=== PATIENT | male | born 1955 | race Caucasian/White ===

== ENCOUNTER 2020-09-12 22:43 | Inpatient (IN) | payer MEDICAID, SELFPAY ==
--- NOTE | 2020-09-12 22:30 | RT.EKG_ITS ---
APPROVED REPORT Exam: Resting ECG Reason for Exam: [facility] Patient Location: E HR:137 bpm ECG Measurements Heart Rate 137 AXIS MA 161 P 80 QRSd 91 QRS 44 QT 298 T 54 QTc 423 Conclusion Sinus tachycardia. Atrial premature complexes.
[2020-09-12 22:46] VITALS: BP 178/106; PULSE 131; RESP 20; TEMP 36.5; O2SAT 97
[2020-09-12 22:47] VITALS: BP 178/106; PULSE 129; O2SAT 97
[2020-09-12 22:49] VITALS: RESP 20
--- NOTE | 2020-09-12 23:00 | DI.CT_ITS ---
Exam(s) CT HEAD WO EXAM: CT HEAD WO CLINICAL HISTORY: AMS. TECHNIQUE: Imaging Protocol: Axial computed tomography images with coronal and sagittal reformatted images were created and reviewed COMPARISON: No exams were available for comparison FINDINGS: Ventricles and Extra axial spaces: Normal in size and morphology for the patient's age. Hemorrhage: None. Cerebral parenchyma: There are areas of decreased attenuation in the white matter consistent with sma ll vessel ischemic disease. No acute territorial infarct is present. There are bilateral basal gang liar lacunar infarcts present. Midline shift: None. Brainstem/Cerebellum: Normal. Calvarium: Normal. Visualized Paranasal sinuses/Mastoids: There is mucosal thickening in the paranasal sinuses with no a ir-fluid levels. Small mucous retention cyst or polyp is seen in the right sphenoid sinus. Soft Tissues: Unremarkable. IMPRESSION: No acute intracranial process. RADIATION DOSE DELIVERED: 866.98mGy.cm Total DLP DATA REPOSITORY: All CT scans at this facility are submitted to the National Radiology Data Registry (NRDR) Dose Index Registry (DIR) with the [employer] (ACR). RADIATION OPTIMIZATION: All CT scans at this facility use at least one of these dose optimization te chniques: automated exposure control; mA and/or kV adjustment per patient size (includes targeted exa ms where dose is matched to clinical indication); or iterative reconstruction.
[2020-09-12 23:06] LABS: Abs Immature Grans 0.01 10^3/uL (0.0-0.06); Absolute Basophil Count 0.03 10^3/uL (0.0-0.2); Absolute Eosinophil Count 0.12 10^3/uL (0.0-0.7); Absolute Lymphocyte Count 1.15 10^3/uL (1.2-3.4); Absolute Monocyte Count 0.49 10^3/uL (0.1-0.8); Absolute Neutrophil Count 2.46 10^3/uL (1.2-6.7); Basophils % 0.7; Eosinophils % 2.8; HCT 41.3 % (40.0-50.0); HGB 13.7 g/dL (13.5-17.5); Immature Grans % 0.2; MCH 28.6 pg (27.0-33.0); MCHC 33.2 % (32.0-36.0); MCV 86.2 fL (80-95); MPV 11.2 fL (8.0-11.0); Monocytes % 11.5; Neutrophils % 57.8; Nucleated RBC 0 %; Platelet Count 121 10^3/uL (130-400); RBC 4.79 10^6/uL (4.36-5.78); RDW 14.3 % (11.8-14.1); RDW-SD 45.8 fL; WBC 4.26 10^3/uL (4.4-10.8)
[2020-09-12 23:12] VITALS: PULSE 133; TEMP 37.9; O2SAT 96
--- NOTE | 2020-09-12 23:13 | W.ED.GENAD ---
Discharge Plan Disposition Patient Disposition: [facility] INPATIENT Condition: Poor Discharge Details Clinical Impression: Altered mental status, Benzodiazepine dependence, Alcohol dependence Primary Care Provider: Hammad Victoria ED Provider: Hammad Bobby [place] Meds and New Rx's Prescriptions: No Action Eliquis 5 mg Tablet 5 mg PO BID RF: 0 clonazepam 0.5 mg Tablet 0.5 mg PO PRN PRNRF: 0 clonazepam 1 mg Tablet 1 mg PO BID RF: 0 mirtazapine 30 mg Tablet 30 mg PO DAILY RF: 0 lisinopril 5 mg Tablet 5 mg PO DAILY RF: 0 quetiapine [Seroquel] 300 mg Tablet 150 mg PO QHS RF: 0 zolpidem 10 mg Tablet 10 mg PO QHS PRNRF: 0 duloxetine 60 mg Capsule,Delayed Release(Dr/Ec) 60 mg PO DAILY RF: 0 Medical Decision Making Patient presenting with altered mental status. He is tachycardic and febrile to 100.3. No specific complaint other than back pain which is unclear whether this is old or new. Records were obtained from [facility] and from the [place]. Patient has history of opiate abuse, benzodiazepine dependence, alcohol use. He also had submassive PE with thrombectomy at [facility] in May. At this time he is awake and alert but confused. He is nonfocal neurologically. IV is in place. Laboratory studies sent. Fluids and Ativan ordered in case this is benzo withdrawal. CT head as well as CT chest abdomen pelvis ordered given history of submassive PE and complaint of back pain. He is supposed to be on Eliquis now. Patient's work-up here has been unremarkable. His laboratory studies without any clinically significant abnormalities. Potassium and magnesium are a little low. His alcohol, Tylenol, aspirin are all negative. Urine drug screen is positive for marijuana and opiates. There is no benzodiazepines present. His head CT is without acute change. CT of the chest abdomen pelvis also nothing acute. He has responded to fluids and IV Ativan. My suspicion is this is related to benzodiazepine and alcohol withdrawal. I have ordered thiamine and folate acid. Case discussed with hospitalist. Patient will be admitted for further management of presumed withdrawal with altered mental status. Medical Records Medical records reviewed: Yes I reviewed the patient's medical records. Medical records narrative: Obtained from [facility] and [place] Lab Data Lab results reviewed: Yes I reviewed the patient's lab results. ECG Data Attestation: I personally reviewed and interpreted this ECG (s) as follows: Prior ECG tracings: not available for review Interpretation: Sinus tachycardia with PACs and rate related ST changes. No acute ST or T elevation. HPI General Mode of arrival: EMS. Date/Time Provider Initiated Documentation: 09/12/20 23:13. Limitations to Documentation: altered mental status. Information obtained by: patient, EMS and RN notes reviewed. HPI Narrative: Patient brought in by EMS with altered mental status. Patient was in the right apartment building but tried to gain access to the wrong apartment through a window. [facility] was called by the occupants of that apartment. [facility] subsequently called EMS when they realized patient was altered but not intoxicated. They did speak to the patient's who was not able to offer up much history. Patient here is awake and alert but obviously confused. He does know he is in a hospital but does not know the date, the holiday that was yesterday, any medical or medication history. Patient denies headache, chest pain, shortness of breath, abdominal pain. Patient complains of low back pain but is unclear whether this is new or old. He has never been to our hospital before. Apparently moved to the [facility] recently with his . Related Data Home Medications Medication Instructions Recorded Confirmed apixaban [Eliquis] 5 mg PO BID 09/13/20 09/13/20 clonazepam 0.5 mg PO PRN PRN 09/13/20 09/13/20 clonazepam 1 mg PO BID 09/13/20 09/13/20 duloxetine 60 mg PO DAILY 09/13/20 09/13/20 lisinopril 5 mg PO DAILY 09/13/20 09/13/20 mirtazapine 30 mg PO DAILY 09/13/20 09/13/20 quetiapine [Seroquel] 150 mg PO QHS 09/13/20 09/13/20 zolpidem 10 mg PO QHS PRN 09/13/20 09/13/20 Allergies Allergy/AdvReac Type Severity Reaction Status Date / Time acetaminophen [From Percocet] Allergy Intermediate Verified 09/13/20 00:01 oxycodone [From Percocet] Allergy Intermediate Verified 09/13/20 00:01 bupropion AdvReac Intermediate Verified 09/13/20 00:01 hydrochlorothiazide AdvReac Intermediate Verified 09/13/20 00:01 General Stated Complaint: AMS/LOC KARISSA: 2 Review of Systems Unobtainable due to mental status [facility] Medical History (Updated 09/13/20 @ 01:50 by Hammad Bobby MD) Alcohol dependence Anxiety Benzodiazepine dependence Bipolar disorder BPH (benign prostatic hyperplasia) Hepatitis B Hepatitis C virus HTN (hypertension) Hypercholesterolemia Opioid abuse Pulmonary embolism Surgical History (Updated 09/12/20 @ 23:33 by Hammad Bobby MD) History of surgical procedure s/p thrombectomy for PE Social History Smoking/Tobacco Use Status: Never Smoking risk assessment performed?: Yes Substance use type: does not use Exam Narrative Exam Narrative: Const: Obese, confused, elderly male in NAD. HEENT: NC/AT. Normal facial exam. Eyes: Pupils are small and minimally reactive. Neck: Supple. Trachea midline. Lungs: Normal respiratory effort. Lungs are clear. Cor: RRR without murmur/gallop. Tachycardic. Good radial pulses. GI: Soft. NT/ND. No guarding or rebound. Neuro: A+O x 2. Normal speech. Confused. Cranial nerves II - XII grossly intact. No gross motor or sensory deficit. Ext: No C/C/E. Skin: Warm and dry without rash. Course Vital Signs Vital signs: Vital Signs Temperature 97.7 F 09/12/20 22:46 Pulse 131 H 09/12/20 22:46 Respiratory Rate 20 09/12/20 22:46 Blood Pressure 178/106 H 09/12/20 22:46 Pulse Oximetry 97 09/12/20 22:46 Temperature 100.3 F H 09/12/20 23:12 Temperature Source Core 09/12/20 23:12 Pulse 133 H 09/12/20 23:12 Respiratory Rate 20 09/12/20 22:49 Respiratory Effort Non-Labored 09/12/20 22:49 Respiratory Depth Normal 09/12/20 22:49 Respiratory Pattern Normal 09/12/20 22:49 Blood Pressure 178/106 H 09/12/20 22:46 Blood Pressure Position Sitting 09/12/20 22:46 Pulse Oximetry 96 09/12/20 23:12 Oxygen Delivery Method Room Air 09/12/20 23:12 Oxygen Flow Rate 0 09/12/20 23:12 Lab/Test Results Lab/Test Results: Laboratory Tests Range/Units 09/12/20 22:55 WBC (4.4-10.8) 10^3/uL 4.26 L RBC (4.36-5.78) 10^6/uL 4.79 Hgb (13.5-17.5) g/dL 13.7 Hct (40.0-50.0) % 41.3 MCV (80-95) fL 86.2 MCH (27.0-33.0) pg 28.6 MCHC (32.0-36.0) % 33.2 RDW (11.8-14.1) % 14.3 H Plt Count (130-400) 10^3/uL 121 L MPV (8.0-11.0) fL 11.2 H Immature Gran % 0.2 Neutrophils % 57.8 Lymphocytes % 27.0 Monocytes % 11.5 Eosinophils % 2.8 Basophils % 0.7 Nucleated RBC % % 0 Absolute Neutrophils (1.2-6.7) 10^3/uL 2.46 Absolute Lymphocytes (1.2-3.4) 10^3/uL 1.15 L Absolute Monocytes (0.1-0.8) 10^3/uL 0.49 Absolute Eosinophils (0.0-0.7) 10^3/uL 0.12 Absolute Basophils (0.0-0.2) 10^3/uL 0.03
--- NOTE | 2020-09-12 23:15 | DI.CT_ITS ---
Exam(s) CT CHEST PE ABD PELVIS W EXAM: CT CHEST PE ABD PELVIS W CLINICAL HISTORY: AMS, tachycardia, back pain. TECHNIQUE: Imaging Protocol: Axial CT angiography was performed with multi-slice acquisition and mu lti-planar and/or 3D reconstructions. CONTRAST MATERIAL: Intravenous: Omnipaque 350 Contrast volume:100 mL COMPARISON: No exams were available for comparison FINDINGS: CHEST: Pulmonary Arteries: No evidence of filling defect to suggest pulmonary emboli. Tracheobronchial tree: Patent where visualized. Mediastinum and Reyna: No dominant adenopathy or fluid collection. Pulmonary parenchyma: Pleural based small opacities are noted in the left upper lobe and superior seg ment of the right lower lobe. No architectural distortion. Pleura: No effusion or pneumothorax. Heart: The heart is not dilated. Mild coronary artery calcification. No significant pericardial effu matthew. Aorta: Thoracic aorta non-dilated. Mild atherosclerosis. No dissection. Bones: No acute fracture. Thyroid: Visualized portions are unremarkable. ABDOMEN: Liver: There is diffuse decreased attenuation liver consistent with fatty infiltration. No measurabl e mass. Portal, Superior Mesenteric, and Splenic Veins: Unremarkable. Gallbladder and Biliary Tract: No radiodense calculus or dilation. Pancreas: Normal density, no abnormal calcifications or inflammatory process. Spleen: Normal. Adrenals: No masses seen. Kidneys: Normal size, contour and axis. No radiodense stones or obstructive uropathy. No masses seen. Abdominal Aorta: Abdominal portion non-dilated. Atherosclerosis. Bowel: No obstruction or bowel wall thickening. Appendix is unremarkable. Sigmoid colon diverticulosi s, but no evidence of acute diverticulitis. Peritoneal Cavity: No ascites, collection or mesenteric inflammatory response. Lymph Nodes: Within normal limits. Bones: No acute fracture. Soft Tissues: Unremarkable. PELVIS: Bladder: Symmetric distention, no gross wall thickening. Reproductive Organs: Unremarkable as visualized. Lymph Nodes: Within normal limits. Bones: No acute fracture. IMPRESSION: 1. No evidence of pulmonary embolism, thoracic aortic dissection or aneurysm. 2. Pleural based small opacities in the right lower lobe and left upper lobe. These may represent ar eas of atelectasis or pneumonia. Mass cannot be entirely excluded. Follow-up CT scan of the chest t o document resolution is recommended. 3. No acute abdominal or pelvic process. Incidental Findings RADIATION DOSE DELIVERED: 1,975.62mGy.cm Total DLP 1,975.62mGy.cm Total DLP DATA REPOSITORY: All CT scans at this facility are submitted to the National Radiology Data Registry (NRDR) Dose Index Registry (DIR) with the [employer] (ACR). RADIATION OPTIMIZATION: All CT scans at this facility use at least one of these dose optimization te chniques: automated exposure control; mA and/or kV adjustment per patient size (includes targeted exa ms where dose is matched to clinical indication); or iterative reconstruction.
[2020-09-12 23:19] LABS: Ammonia 15 umol/L (11-32)
[2020-09-12 23:24] LABS: Bilirubin Negative (Negative); Blood Small (Negative); Clarity Clear (Clear); Glucose Negative (Negative); Ketones Negative (Negative); Leukocyte Esterase Negative (Negative); Nitrite Negative (Negative); Specific Gravity >= 1.030 (1.005-1.025); Urobilinogen 0.2 EU/dL (Up TO 0.2)
[2020-09-12 23:28] LABS: ALT 24 U/L (16-63); AST 25 U/L (15-37); Albumin 3.7 g/dL (3.4-5.0); Alkaline Phosphatase 57 U/L (46-116); Anion Gap 9.4 mmol/L (3-11); BUN 20 mg/dL (7-18); Bilirubin, Total 0.6 mg/dL (0.2-1.0); CO2 29.6 mmol/L (21.0-32.0); CREATININE 1.3 mg/dL (0.70-1.30); Calcium 9.1 mg/dL (8.5-10.1); Chloride 101 mmol/L (98-107); Estimated GFR 55.58 (mL/min/1.73m2); Glucose 177 mg/dL (74-106); Magnesium 1.7 mg/dL (1.8-2.4); Potassium 3.4 mmol/L (3.5-5.1); Sodium 140 mmol/L (136-145); TSH (W/Ref FT4) 1.92 uIU/mL (0.36-3.74); Total Protein 7.9 g/dL (6.4-8.2); Troponin I < 0.05 ng/mL (<0.06)
[2020-09-12 23:29] LABS: Bacteria Rare HPF (Negative); C & S Indicated? No; Casts Negative LPF (Negative); Crystals Negative HPF (Negative); Epithelial Cells Rare HPF (Negative); Mucus Trace (Negative); WBC Negative HPF (0-5)
[2020-09-12 23:31] VITALS: BP 166/70; PULSE 128; PULSE 97; RESP 18; O2SAT 96
[2020-09-12 23:31] LABS: Salicylate < 2.8 mg/dL (<2.8)
[2020-09-12] MEDS: LORazepam 2 MG/ML VIAL 1 MG IVP (23:32)
[2020-09-12] MEDS: Lactated Ringers 1,000 ML 200 ML IV (23:33)
[2020-09-12 23:34] LABS: ETHANOL BLOOD < 3.0 mg/dL (<3)
[2020-09-12 23:34] LABS: *AMPHETAMINES SCREEN URINE Negative (Negative); *BARBITURATES SCREEN URINE Negative (Negative); *BENZODIAZEPINES SCREEN URINE Negative (Negative); Cannabinoids THC Positive (Negative); Cocaine Screen,Urine Negative (Negative); METHADONE URINE SCREEN Negative (Negative); OPIATES URINE SCREEN Positive (Negative)
[2020-09-12 23:35] LABS: Tricyclic Antidepressants Negative (Negative)
[2020-09-12 23:35] LABS: Acetaminophen < 2 ug/mL (10-30)
[2020-09-12 23:36] LABS: Lactate 2.3 mmol/L (0.6-1.4)
[2020-09-12] MEDS: Omnipaque 350 MG/ML 100 ML BTL IV (23:51)
[2020-09-12] MEDS: Normal Saline - Diluent 50 ML VIAL IV (23:54)
[2020-09-12] MEDS: Normal Saline Flush 10 ML SYR IVP (23:55)
[2020-09-13] VITALS (11 sets, daily range): BP systolic 127–173; BP diastolic 72–112; PULSE 80–122; RESP 12–19; TEMP 36.8–37.2; O2SAT 94–99
[2020-09-13] MEDS: LORazepam 2 MG/ML VIAL IVP (00:09)
--- NOTE | 2020-09-13 00:10 | DI.VRAD_ITS ---
PROCEDURE INFORMATION: Exam: CT Head Without Contrast Exam date and time: 09/12/2020 11:15 PM Age: 64 years old Clinical indication: Altered mental status/memory loss; Confusion or disorientation; Patient HX: AMS TECHNIQUE: Imaging protocol: Computed tomography of the head without contrast. Radiation optimization: All CT scans at this facility use at least one of these dose optimization techniques: automated exposure control; mA and/or kV adjustment per patient size (includes targeted exams where dose is matched to clinical indication); or iterative reconstruction. COMPARISON: No relevant prior studies available. FINDINGS: Brain: No acute intracranial hemorrhage, mass-effect, midline shift, or extra-axial collection is seen. There is patchy white matter hypoattenuation, nonspecific but commonly seen as a chronic sequela of small vessel ischemic disease. There is patchy hypoattenuation in the region of the basal ganglia and deep white matter tracts with an appearance suggesting lacunar infarcts, uncertain chronicity. The matamoros white matter differentiation appears preserved. Cerebral ventricles: The ventricular system and basilar cisterns appear appropriate in size and configuration. Paranasal sinuses: There is patchy mucoperiosteal thickening in the paranasal sinuses but no air-fluid levels. Focal soft tissue density material in the right sphenoid sinus has the appearance of retained mucus, a mucous retention cyst, or an inflammatory polyp. Mastoid air cells: The mastoid air cells appear well-aerated. Auditory system: The middle ear cavities appear clear. Orbital cavity: The globes and intraorbital structures appear grossly intact. Vasculature: There is atherosclerotic calcification within the intracranial portion of the internal carotid arteries bilaterally. Bones/joints: The bony calvarium appears intact. No depressed skull fracture is seen. Soft tissues: No significant scalp lesion is seen. IMPRESSION: No acute intracranial abnormality seen. Dictated and Authenticated by: Delgado Hooks MD. Ordering:CAROL Cueva MD
[2020-09-13] MEDS: THIAMINE 100 MG in Normal Saline 100 ML 200 MG IVPB (01:09)
--- NOTE | 2020-09-13 01:21 | DI.VRAD_ITS ---
PROCEDURE INFORMATION: Exam: CTA Chest With Contrast Exam date and time: 09/12/2020 11:21 PM Age: 64 years old Clinical indication: Other: Tachycardia; Patient HX: Ams< back pain, tacycardia; Additional info: Submassive pe in feb with thrombectomy TECHNIQUE: Imaging protocol: Computed tomographic angiography of the chest with contrast. 3D rendering (Not supervised by radiologist): MIP and/or 3D reconstructed images were created by the technologist. Radiation optimization: All CT scans at this facility use at least one of these dose optimization techniques: automated exposure control; mA and/or kV adjustment per patient size (includes targeted exams where dose is matched to clinical indication); or iterative reconstruction. Contrast material: OMNIPAQUE 350; Contrast volume: 100 ml; Contrast route: INTRAVENOUS (IV); COMPARISON: No relevant prior studies available. FINDINGS: Pulmonary arteries: No pulmonary emboli. Aorta: No aortic aneurysm. No aortic dissection. Lungs: Pleural based opacity in the left upper lobe. Minimal subsegmental atelectasis versus scarring Pleural spaces: No pneumothorax. No pleural effusion. Heart: No cardiomegaly. No pericardial effusion. Lymph nodes: Unremarkable. No enlarged lymph nodes. Bones/joints: Unremarkable. No acute fracture. Soft tissues: Unremarkable. IMPRESSION: No pulmonary emboli observed Nonspecific pleural based opacity in the left upper lobe PROCEDURE INFORMATION: Exam: CT Abdomen And Pelvis With Contrast Exam date and time: 09/12/2020 11:21 PM Age: 64 years old Clinical indication: Other: Tachycardia; Patient HX: Ams< back pain, tacycardia; Additional info: Submassive pe in feb with thrombectomy TECHNIQUE: Imaging protocol: Computed tomography of the abdomen and pelvis with contrast. Radiation optimization: All CT scans at this facility use at least one of these dose optimization techniques: automated exposure control; mA and/or kV adjustment per patient size (includes targeted exams where dose is matched to clinical indication); or iterative reconstruction. Contrast material: OMNIPAQUE 350; Contrast volume: 100 ml; Contrast route: INTRAVENOUS (IV); COMPARISON: No relevant prior studies available. FINDINGS: Liver: Normal. No mass. Gallbladder and bile ducts: Normal. No calcified stones. No ductal dilation. Pancreas: Normal. No ductal dilation. Spleen: Normal. No splenomegaly. Adrenal glands: Normal. No mass. Kidneys and ureters: Normal. No hydronephrosis. Stomach and bowel: Unremarkable. No obstruction. No mucosal thickening. Appendix: No evidence of appendicitis. Intraperitoneal space: Unremarkable. No free air. No significant fluid collection. Vasculature: Atherosclerosis. No abdominal aortic aneurysm. Lymph nodes: Unremarkable. No enlarged lymph nodes. Urinary bladder: Unremarkable as visualized. Reproductive: Unremarkable as visualized. Bones/joints: Degenerative changes in the spine most pronounced at L4-L5. No acute fracture. No dislocation. Soft tissues: Unremarkable. IMPRESSION: No acute findings Dictated and Authenticated by: Manohar Reilly MD. Ordering:CAROL Cueva MD
[2020-09-13 02:08] LABS: Source Nasal/Nares
[2020-09-13] MEDS: Folic Acid 1 MG TAB PO ×2 (02:16→08:05)
[2020-09-13] MEDS: Lactated Ringers 1,000 ML 200 ML IV (03:22)
[2020-09-13] MEDS: POTASSIUM CHLORIDE/0.9% NACL 1,000 ML 80 MEQ IV (04:42)
--- NOTE | 2020-09-13 05:45 | W.PM.HP.N ---
Date of service: 09/13/20 Time of Service: 05:46 Assessment and Plan Assessment and plan (1) Altered mental status: Status: Acute Assessment and plan: Has h/o Etoh and benzo dependence; neither noted in his system. Likely withdrawal from benzodiazapines and possibly Etoh. His last known alcohol intake is not known. CIWA monitoring; no score overnight. Will schedule lorazepam 1 mg TID with plan to restart Clonazepam when it is more clear that he is not withdrawing from alcohol. (2) Alcohol dependence: Status: Chronic Assessment and plan: Unknown last intake. MVI, folate and thiamine daily. Ordered po but if remains lethargic can give via banana bag. (3) Benzodiazepine dependence: Status: Chronic Assessment and plan: [facility] It is unclear if there has been a disruption in his prescription availability or if he is taking it more frequently than prescribed. His was admitted to [facility] recently for benzodiazepine withdrawal so the possiblitiy of some diversion of his Clonazepam to her is possible. Now on scheduled lorazepam with prn for CIWA scoring. (4) HTN (hypertension): Status: Chronic Assessment and plan: He is on a low dose of lisinopril 5mg daily. BP elevated Monitor. (5) Opioid abuse: Status: Chronic Assessment and plan: He is not prescribed [facility]iods [facility] the [facility] but his UDS was positive for opiods. (6) Pulmonary embolism: Status: Chronic Assessment and plan: History of a P.E. Cont Eliquis. History of Present Illness History of Present Illness Chief Complaint: Confusional state Narrative: This is a 64 yo male with a PMH of alcohol dependence, benzodiazepine dependence, Bipolar disorder, opiod abuse, submassive pulmonary embolism on Eliquis, HTN, Hepatitis B, C, BPH. He presented to the ED d/t a change/alteration in his mental status. He had attempted to gain entrance into an apartment via a window that was not his apartment. He was in his apartment complex. The residence of the apt called [facility] who then notified EMS once they noted his confusion. In the ED he knew he was in a hospital but did not know the date or his medical history. His WBC and Hgb were normal. Platelets low at 121. Mildly low K+ of 3.4 and a Mg+ of 1.7. His UDS was positive for opiods (he is not prescribed any), positive for THC, and negative for benzodiazepines (he is prescribed Clonazepam). He was noted to be alert but confused. To the ED physician denied fever/chills, cough/sputum/SOA, abd pain/N/V. He did described back pain and there was uncertainty as to whether this was chronic or acute. CT head, chest/abd/pelvis were all unremarkable. When I evaluated him he was very lethargic and only remained awake for very brief periods and did not answer questions. His [facility] and [facility] records were reviewed by the ED physician. Given his history of alcohol abuse syndrome he was started on CIWA monitoring but did not score overnight. He was given a total of 3mg of lorazepam in the ED. The working diagnoses of benzodiazepine withdrawal and alcohol withdrawal were acted upon. Review of Systems All systems reviewed & are unremarkable except as noted in HPI and below (As per ED physicians findings.) [facility] Medical History Alcohol dependence Anxiety Benzodiazepine dependence Bipolar disorder BPH (benign prostatic hyperplasia) Hepatitis B Hepatitis C virus HTN (hypertension) Hypercholesterolemia Opioid abuse Pulmonary embolism Surgical History History of surgical procedure s/p thrombectomy for PE Social History Smoking/Tobacco Use Status: Never Smoking risk assessment performed?: Yes Substance use type: does not use Meds Allergies and Home Medications Allergies Allergy/AdvReac Type Severity Reaction Status Date / Time acetaminophen [From Percocet] Allergy Intermediate Verified 09/13/20 00:01 oxycodone [From Percocet] Allergy Intermediate Verified 09/13/20 00:01 bupropion AdvReac Intermediate Verified 09/13/20 00:01 hydrochlorothiazide AdvReac Intermediate Verified 09/13/20 00:01 Home Medications Medication Instructions Recorded Confirmed Type apixaban [Eliquis] 5 mg PO BID 09/13/20 09/13/20 History clonazepam 0.5 mg PO PRN PRN 09/13/20 09/13/20 History clonazepam 1 mg PO BID 09/13/20 09/13/20 History duloxetine 60 mg PO DAILY 09/13/20 09/13/20 History lisinopril 5 mg PO DAILY 09/13/20 09/13/20 History mirtazapine 30 mg PO DAILY 09/13/20 09/13/20 History quetiapine [Seroquel] 150 mg PO QHS 09/13/20 09/13/20 History zolpidem 10 mg PO QHS PRN 09/13/20 09/13/20 History Exam Const General: no acute distress Nutritional Appearance: obese Orientation: not awake (asleep. Arouses briefly to tactile stimulation.) [facility] Head: normocephalic and atraumatic Eyes Sclera: sclerae normal Pupils: PERRL Resp Effort & Inspection: normal respiratory effort Auscultation: clear to auscultation bilaterally Cardio Rate: tachycardic (HR in the 90's.) Rhythm: regular rhythm Heart Sounds: S1 normal and S2 normal GI Inspection: obesity Palpation: soft and nontender Skin General skin exam: no rashes or lesions noted Extrem General: no pedal edema and no calf tenderness Results Labs Result diagrams: 09/12/20 22:55 09/12/20 22:55 Labs: Laboratory Results - last 24 hr 09/12/20 09/12/20 09/12/20 22:55 22:55 22:55 WBC 4.26 L RBC 4.79 Hgb 13.7 Hct 41.3 MCV 86.2 MCH 28.6 MCHC 33.2 RDW 14.3 H Plt Count 121 L MPV 11.2 H Immature Gran % 0.2 Neutrophils % 57.8 Lymphocytes % 27.0 Monocytes % 11.5 Eosinophils % 2.8 Basophils % 0.7 Nucleated RBC % 0 Absolute Neutrophils 2.46 Absolute Lymphocytes 1.15 L Absolute Monocytes 0.49 Absolute Eosinophils 0.12 Absolute Basophils 0.03 VBG Lactate Sodium 140 Potassium 3.4 L Chloride 101 Carbon Dioxide 29.6 Anion Gap 9.4 BUN 20 H Creatinine 1.3 Estimated GFR/1.73 m2 55.58 Glucose 177 H Calcium 9.1 Magnesium 1.7 L Total Bilirubin 0.6 AST 25 ALT 24 Alkaline Phosphatase 57 Ammonia 15 Troponin I < 0.05 Total Protein 7.9 Albumin 3.7 TSH 1.92 Urine Color Urine Clarity Urine pH Ur Specific [place] Urine Protein Urine Ketones Urine Blood Urine Nitrite Urine Bilirubin Urine Urobilinogen Ur Leukocyte Esterase Urine RBC Urine WBC Ur Epithelial Cells Urine Crystals Urine Bacteria Urine Casts Urine Mucus Ur Culture Indicated? Urine Glucose Salicylates Urine Opiates Screen Urine Methadone Screen Acetaminophen Ur Barbiturates Screen Ur Tricyclics Screen Ur Amphetamines Screen U Benzodiazepines Scrn Urine Cocaine Screen Ur THC Screen Ethyl Alcohol < 3.0 COVID-19 Source 09/12/20 09/12/20 09/12/20 22:55 23:15 23:15 WBC RBC Hgb Hct MCV MCH MCHC RDW Plt Count MPV Immature Gran % Neutrophils % Lymphocytes % Monocytes % Eosinophils % Basophils % Nucleated RBC % Absolute Neutrophils Absolute Lymphocytes Absolute Monocytes Absolute Eosinophils Absolute Basophils VBG Lactate Sodium Potassium Chloride Carbon Dioxide Anion Gap BUN Creatinine Estimated GFR/1.73 m2 Glucose Calcium Magnesium Total Bilirubin AST ALT Alkaline Phosphatase Ammonia Troponin I Total Protein Albumin TSH Urine Color Yellow Urine Clarity Clear Urine pH 6.0 Ur Specific [place] >= 1.030 H Urine Protein Trace H Urine Ketones Negative Urine Blood Small H Urine Nitrite Negative Urine Bilirubin Negative Urine Urobilinogen 0.2 Ur Leukocyte Esterase Negative Urine RBC 3-5 H Urine WBC Negative Ur Epithelial Cells Rare Urine Crystals Negative Urine Bacteria Rare Urine Casts Negative Urine Mucus Trace Ur Culture Indicated? No Urine Glucose Negative Salicylates < 2.8 Urine Opiates Screen Positive A Urine Methadone Screen Negative Acetaminophen < 2 Ur Barbiturates Screen Negative Ur Tricyclics Screen Negative Ur Amphetamines Screen Negative U Benzodiazepines Scrn Negative Urine Cocaine Screen Negative Ur THC Screen Positive A Ethyl Alcohol COVID-19 Source 09/12/20 09/13/20 23:24 02:04 WBC RBC Hgb Hct MCV MCH MCHC RDW Plt Count MPV Immature Gran % Neutrophils % Lymphocytes % Monocytes % Eosinophils % Basophils % Nucleated RBC % Absolute Neutrophils Absolute Lymphocytes Absolute Monocytes Absolute Eosinophils Absolute Basophils VBG Lactate 2.3 H* Sodium Potassium Chloride Carbon Dioxide Anion Gap BUN Creatinine Estimated GFR/1.73 m2 Glucose Calcium Magnesium Total Bilirubin AST ALT Alkaline Phosphatase Ammonia Troponin I Total Protein Albumin TSH Urine Color Urine Clarity Urine pH Ur Specific [place] Urine Protein Urine Ketones Urine Blood Urine Nitrite Urine Bilirubin Urine Urobilinogen Ur Leukocyte Esterase Urine RBC Urine WBC Ur Epithelial Cells Urine Crystals Urine Bacteria Urine Casts Urine Mucus Ur Culture Indicated? Urine Glucose Salicylates Urine Opiates Screen Urine Methadone Screen Acetaminophen Ur Barbiturates Screen Ur Tricyclics Screen Ur Amphetamines Screen U Benzodiazepines Scrn Urine Cocaine Screen Ur THC Screen Ethyl Alcohol COVID-19 Source Nasal/nares Last Vital Signs Temp 37 C 09/13/20 03:22 Pulse 90 09/13/20 03:22 Resp 19 09/13/20 03:22 BP 173/95 H 09/13/20 03:22 Pulse Ox 99 09/13/20 03:22 COVID-19 Screening Have you, or household traveled for leisure in last 14 days?: No Had IN PERSON contact w/suspected or confirmed C-19 person: No
[2020-09-13] MEDS: Lisinopril 5 MG TAB PO (07:53)
[2020-09-13] MEDS: LORazepam 1 MG TAB PO ×2 (07:53→13:51)
[2020-09-13] MEDS: DULoxetine 30 MG CAP 60 MG PO (07:53)
[2020-09-13] MEDS: Magnesium Oxide 400 MG TAB PO (07:53)
[2020-09-13] MEDS: Apixaban 5 MG TAB PO (07:53)
[2020-09-13] MEDS: Multivitamin TAB 1 TAB PO (08:05)
[2020-09-13] MEDS: Thiamine 100 MG TAB PO (08:05)
[2020-09-13 10:21] LABS: COVID-19 PCR Negative (Negative)
--- NOTE | 2020-09-13 10:33 | INITIAL_ITS ---
- If Service Date Differs Date of service: 09/13/20 Time of Service: 10:33 Care Management Initial Assess REASON FOR HOSPITALIZATION:: Alcohol withdrawal PAST MEDICAL HISTORY/PAST SURGICAL HISTORY:: Alcohol dependence. Anxiety. Benzodiazepine dependence. Bipolar disorder. BPH (benign prostatic hyperplasia). Hepatitis B. Hepatitis C virus. HTN (hypertension). Hypercholesterolemia. Opioid abuse. Pulmonary embolism. History of surgical procedure. s/p thrombectomy for PE PREVIOUS FUNCTIONAL STATUS/SOCIAL/FAMILY SUPPORTS:: Trey resides in a new apartment in [place] with his , Sharon. He is independent at baseline in the community. [facility] RN CM Mendy Lilly reports that Trey had a large PE in May and was admitted to [facility]. She reports that his [facility] is Dr. Keegan Rosen, his mental health provider is Dr. Victor M Cortez. His dx include bipolar disorder, bpad, panic dx with agoraphobia, and alcoholism in remission. Mendy reports there is much documentation central to concerns around medication diversion and not taking medications as prescribed. CM shared this information with the provider. ADVANCE DIRECTIVES:: None on file at [facility]. Has patient been provided with info about the portal/API?: Yes Did the patient sign up for the portal?: No CODE STATUS:: Full Code INSURANCE COVERAGE / FINANCIAL ISSUES:: Medicare. Medicaid CURRENT HOME/COMMUNITY SERVICES/EQUIPMENT:: Tub seat, hand held shower PRIMARY CARE PHYSICIAN:: Hammad Victoria POTENTIAL DISCHARGE NEEDS:: Follow up appointments. PATIENT/FAMILY EDUCATION NEEDS:: Review of discharge instructions, discuss Ask Me Three. ANTICIPATED BARRIERS TO DISCHARGE:: None identified. TRANSPORTATION:: Via private vehicle with family. PLAN:: Trey will return home when ready per MD. He will follow up with his PCP and plan of care as prescribed. He will transport via private vehicle with family.
[2020-09-13 12:18] LABS: Anion Gap 6.2 mmol/L (3-11); BUN 12 mg/dL (7-18); CO2 29.8 mmol/L (21.0-32.0); CREATININE 0.9 mg/dL (0.70-1.30); Calcium 8.5 mg/dL (8.5-10.1); Chloride 106 mmol/L (98-107); Glucose 109 mg/dL (74-106); Sodium 142 mmol/L (136-145)
--- NOTE | 2020-09-13 15:16 | PGE_ITS ---
Date of Service Date of service: 09/13/20 Time of Service: 15:16 Subjective Subjective Interval history since last seen: The patient admits to starting to drink again 2 months ago. He had 2 beers 3 days ago. He had run out of clonazepam and ambien 3 days ago, stating that the [facility] is 1 month behind on the mailings. He states he last used oxycodone last night - he gets it off the street. He states he does not have a problem with alcohol withdrawal, but has a h/o clonazepam w/d. He feels like this is what happened. He has a supply of eliquis at home. His CIWA scores today have been 0 and 1. Care management was able to get the names of the medications the patient is on from the [facility]. He is seen by Dr Villela at the [facility] - [phone] ext [phone]. The patient feels better. Agrees to stay another night until he can go home tomorrow. Will order PT c/s. Objective Last Vital Signs Temp 36.8 C 09/13/20 07:47 Pulse 82 09/13/20 07:47 Resp 16 09/13/20 07:47 BP 127/72 09/13/20 07:47 Pulse Ox 96 09/13/20 07:47 Laboratory Results - last 24 hr 09/12/20 09/12/20 09/12/20 22:55 22:55 22:55 WBC 4.26 L RBC 4.79 Hgb 13.7 Hct 41.3 MCV 86.2 MCH 28.6 MCHC 33.2 RDW 14.3 H Plt Count 121 L MPV 11.2 H Immature Gran % 0.2 Neutrophils % 57.8 Lymphocytes % 27.0 Monocytes % 11.5 Eosinophils % 2.8 Basophils % 0.7 Nucleated RBC % 0 Absolute Neutrophils 2.46 Absolute Lymphocytes 1.15 L Absolute Monocytes 0.49 Absolute Eosinophils 0.12 Absolute Basophils 0.03 VBG Lactate Sodium 140 Potassium 3.4 L Chloride 101 Carbon Dioxide 29.6 Anion Gap 9.4 BUN 20 H Creatinine 1.3 Estimated GFR/1.73 m2 55.58 Glucose 177 H Calcium 9.1 Magnesium 1.7 L Total Bilirubin 0.6 AST 25 ALT 24 Alkaline Phosphatase 57 Ammonia 15 Troponin I < 0.05 Total Protein 7.9 Albumin 3.7 TSH 1.92 Urine Color Urine Clarity Urine pH Ur Specific [place] Urine Protein Urine Ketones Urine Blood Urine Nitrite Urine Bilirubin Urine Urobilinogen Ur Leukocyte Esterase Urine RBC Urine WBC Ur Epithelial Cells Urine Crystals Urine Bacteria Urine Casts Urine Mucus Ur Culture Indicated? Urine Glucose Salicylates Urine Opiates Screen Urine Methadone Screen Acetaminophen Ur Barbiturates Screen Ur Tricyclics Screen Ur Amphetamines Screen U Benzodiazepines Scrn Urine Cocaine Screen Ur THC Screen Ethyl Alcohol < 3.0 COVID-19 Source SARS-CoV-2 (PCR) 09/12/20 09/12/20 09/12/20 22:55 23:15 23:15 WBC RBC Hgb Hct MCV MCH MCHC RDW Plt Count MPV Immature Gran % Neutrophils % Lymphocytes % Monocytes % Eosinophils % Basophils % Nucleated RBC % Absolute Neutrophils Absolute Lymphocytes Absolute Monocytes Absolute Eosinophils Absolute Basophils VBG Lactate Sodium Potassium Chloride Carbon Dioxide Anion Gap BUN Creatinine Estimated GFR/1.73 m2 Glucose Calcium Magnesium Total Bilirubin AST ALT Alkaline Phosphatase Ammonia Troponin I Total Protein Albumin TSH Urine Color Yellow Urine Clarity Clear Urine pH 6.0 Ur Specific [place] >= 1.030 H Urine Protein Trace H Urine Ketones Negative Urine Blood Small H Urine Nitrite Negative Urine Bilirubin Negative Urine Urobilinogen 0.2 Ur Leukocyte Esterase Negative Urine RBC 3-5 H Urine WBC Negative Ur Epithelial Cells Rare Urine Crystals Negative Urine Bacteria Rare Urine Casts Negative Urine Mucus Trace Ur Culture Indicated? No Urine Glucose Negative Salicylates < 2.8 Urine Opiates Screen Positive A Urine Methadone Screen Negative Acetaminophen < 2 Ur Barbiturates Screen Negative Ur Tricyclics Screen Negative Ur Amphetamines Screen Negative U Benzodiazepines Scrn Negative Urine Cocaine Screen Negative Ur THC Screen Positive A Ethyl Alcohol COVID-19 Source SARS-CoV-2 (PCR) 09/12/20 09/13/20 09/13/20 23:24 02:02 02:04 WBC RBC Hgb Hct MCV MCH MCHC RDW Plt Count MPV Immature Gran % Neutrophils % Lymphocytes % Monocytes % Eosinophils % Basophils % Nucleated RBC % Absolute Neutrophils Absolute Lymphocytes Absolute Monocytes Absolute Eosinophils Absolute Basophils VBG Lactate 2.3 H* Sodium Potassium Chloride Carbon Dioxide Anion Gap BUN Creatinine Estimated GFR/1.73 m2 Glucose Calcium Magnesium Total Bilirubin AST ALT Alkaline Phosphatase Ammonia Troponin I Total Protein Albumin TSH Urine Color Urine Clarity Urine pH Ur Specific [place] Urine Protein Urine Ketones Urine Blood Urine Nitrite Urine Bilirubin Urine Urobilinogen Ur Leukocyte Esterase Urine RBC Urine WBC Ur Epithelial Cells Urine Crystals Urine Bacteria Urine Casts Urine Mucus Ur Culture Indicated? Urine Glucose Salicylates Urine Opiates Screen Urine Methadone Screen Acetaminophen Ur Barbiturates Screen Ur Tricyclics Screen Ur Amphetamines Screen U Benzodiazepines Scrn Urine Cocaine Screen Ur THC Screen Ethyl Alcohol COVID-19 Source Cancelled Nasal/nares SARS-CoV-2 (PCR) Cancelled Negative 09/13/20 12:04 WBC RBC Hgb Hct MCV MCH MCHC RDW Plt Count MPV Immature Gran % Neutrophils % Lymphocytes % Monocytes % Eosinophils % Basophils % Nucleated RBC % Absolute Neutrophils Absolute Lymphocytes Absolute Monocytes Absolute Eosinophils Absolute Basophils VBG Lactate Sodium 142 Potassium 4.0 Chloride 106 Carbon Dioxide 29.8 Anion Gap 6.2 BUN 12 D Creatinine 0.9 Estimated GFR/1.73 m2 >= 60.00 Glucose 109 H D Calcium 8.5 Magnesium 2.0 Total Bilirubin AST ALT Alkaline Phosphatase Ammonia Troponin I Total Protein Albumin TSH Urine Color Urine Clarity Urine pH Ur Specific [place] Urine Protein Urine Ketones Urine Blood Urine Nitrite Urine Bilirubin Urine Urobilinogen Ur Leukocyte Esterase Urine RBC Urine WBC Ur Epithelial Cells Urine Crystals Urine Bacteria Urine Casts Urine Mucus Ur Culture Indicated? Urine Glucose Salicylates Urine Opiates Screen Urine Methadone Screen Acetaminophen Ur Barbiturates Screen Ur Tricyclics Screen Ur Amphetamines Screen U Benzodiazepines Scrn Urine Cocaine Screen Ur THC Screen Ethyl Alcohol COVID-19 Source SARS-CoV-2 (PCR)
--- NOTE | 2020-09-13 19:04 | W.PM.DS.N ---
Date of service: 09/13/20 Time of Service: 17:00 DS: Diagnosis Discharge Diagnosis (1) Altered mental status: Status: Acute (2) Benzodiazepine withdrawal: Status: Acute (3) Alcohol dependence: Status: Chronic (4) Benzodiazepine dependence: Status: Chronic (5) HTN (hypertension): Status: Chronic (6) Opioid abuse: Status: Chronic (7) Pulmonary embolism: Status: Chronic (8) Opacity of lung on imaging study: Status: Acute (9) COVID-19 ruled out by laboratory testing: Status: Ruled-out Discharge Plan Disposition Patient Disposition: AGAINST MEDICAL ADVICE Condition: Stable Discharge Details Reason For Visit: ALCOHOL WITHDRAWAL Admit Date/Time: 09/13/20 01:48 Admit Provider: Pancho Rodriguez Attending Provider: Pancho Rodriguez Primary Care Provider: Hammad [facility] Course Hospital Course: Mr Baca is a 64 year old male with PMhx of Opioid dependence and abuse, benzodiazepine dependence, alcohol dependence as well as h/o PE on eliquis, who was observed on [facility] hospitalist service on 09/13/20 where he was admitted for altered mental status likely due to acute benzodiazepine withdrawal (specifically, clonazepam). The patient states he ran out of it 3 days prior. Unfortunately, he also started drinking again 2 months ago and his last drink was 3 days prior as well. He denies taking ambien the night of the events and did take oxycodone that he bought on the street. The patient's symptoms did get better after receiving 3 mg of IV ativan in the ED. The patient elected to leave AMA today prior to his benzodiazepine withdrawal completely resolving. Pleural based opacities seen on CT chest/abdomen/pelvis will need to be followed up by PCP. The patient did not have pulmonary symptoms on this admission. Care for patient on day of discharge took 30 minutes. He left without prescriptions. Home Meds and New Rx's Prescriptions: No Action Eliquis 5 mg Tablet 5 mg PO BID RF: 0 clonazepam 0.5 mg Tablet 0.5 mg PO PRN PRNRF: 0 clonazepam 1 mg Tablet 1 mg PO BID RF: 0 mirtazapine 30 mg Tablet 30 mg PO DAILY RF: 0 quetiapine [Seroquel] 300 mg Tablet 150 mg PO QHS RF: 0 zolpidem 10 mg Tablet 10 mg PO QHS PRNRF: 0 Discharge Instructions Referrals: Hammad Victoria [Primary Care Provider] - Activity:: Activity as Tolerated Equipment/Supplies:: No Equipment Needed Diet:: As Tolerated Discharge Orders Discharge Orders: Discharge Order (Routine); Ordered 09/13/20 Ordered By: Opal Duran Discharge Data Discharge Date/Time-TO BE ENTERED AT DEPARTURE: 09/13/20 16:10 DS: Summary Time Spent with Patient providing and/or coordinating discharge services: Less than 30 minutes Status at Discharge Functional status at discharge: independent ambulation Overall status at discharge: patient is progressing back to baseline Mental Status: mental status grossly normal Speech and Movement: speech and movement normal Mood: anxious mood Affect: anxious affect Exam Narrative Exam Narrative: General: Anxious middle-aged male, tremulous, A&Ox3 HEENT: EOMI, MMM Heart: RRR Lungs: CTAB Abdomen: soft, nontender, nondistended Extremities: no edema BLE's Psych Mental Status: mental status grossly normal Speech and Movement: speech and movement normal Mood: anxious mood Affect: anxious affect DS: Data Vitals/I&O Vitals and I&O: Vital Signs Temperature 36.8 C 09/13/20 07:47 Temperature Source Tympanic 09/13/20 07:47 Pulse 93 H 09/13/20 16:04 Pulse Rhythm Regular 09/13/20 07:50 Pulse 116 H 09/13/20 01:00 Respiratory Rate 16 09/13/20 07:47 Respiratory Effort Non-Labored 09/13/20 07:50 Respiratory Depth Normal 09/13/20 07:50 Respiratory Pattern Normal 09/13/20 07:50 Blood Pressure 127/72 09/13/20 07:47 Blood Pressure Mean 125 09/13/20 01:00 Blood Pressure Position Sitting 09/12/20 22:46 Pulse Oximetry 96 09/13/20 07:47 Oxygen Delivery Method Room Air 09/13/20 07:47 Oxygen Flow Rate 0 09/13/20 07:47 Pain Level 0 09/13/20 07:47 Intake & Output 09/12/20 09/13/20 09/13/20 23:59 11:59 23:59 Intake Total 1104.333 / 1344.333 240 / 1344.333 Output Total 1000 / 1000 Balance 104.333 / 344.333 240 / 344.333 Weight 122.1 kg 117.6 kg Intake: IV 864.333 / 864.333 Oral 240 / 480 240 / 480 Output: Urine 1000 / 1000 Other: Urine Color Dark Beti Urine Appearance Clear Urine Odor None Comment patient was bladder scanned for 380, voided 200 in urinal. PVR was then 136 Voiding Methods Urinal Data Completed and Pending Completed studies during hospitalization [Text1]: CT head w/o contrast: No acute intracranial process. CT chest/abdomen/pelvis: 1. No evidence of pulmonary embolism, thoracic aortic dissection or aneurysm. 2. Pleural based small opacities in the right lower lobe and left upper lobe. These may represent areas of atelectasis or pneumonia. Mass cannot be entirely excluded. Follow-up CT scan of the chest to document resolution is recommended. 3. No acute abdominal or pelvic process. Labs on day of discharge: Labs from last 24 hours 09/13/20 09/13/20 09/13/20 12:04 02:04 02:02 WBC RBC Hgb Hct MCV MCH MCHC RDW Plt Count MPV Immature Gran % Neutrophils % Lymphocytes % Monocytes % Eosinophils % Basophils % Nucleated RBC % Absolute Neutrophils Absolute Lymphocytes Absolute Monocytes Absolute Eosinophils Absolute Basophils VBG Lactate Sodium 142 Potassium 4.0 Chloride 106 Carbon Dioxide 29.8 Anion Gap 6.2 BUN 12 D Creatinine 0.9 Estimated GFR/1.73 m2 >= 60.00 Glucose 109 H D Calcium 8.5 Magnesium 2.0 Total Bilirubin AST ALT Alkaline Phosphatase Ammonia Troponin I Total Protein Albumin TSH Urine Color Urine Clarity Urine pH Ur Specific [place] Urine Protein Urine Ketones Urine Blood Urine Nitrite Urine Bilirubin Urine Urobilinogen Ur Leukocyte Esterase Urine RBC Urine WBC Ur Epithelial Cells Urine Crystals Urine Bacteria Urine Casts Urine Mucus Ur Culture Indicated? Urine Glucose Salicylates Urine Opiates Screen Urine Methadone Screen Acetaminophen Ur Barbiturates Screen Ur Tricyclics Screen Ur Amphetamines Screen U Benzodiazepines Scrn Urine Cocaine Screen Ur THC Screen Ethyl Alcohol COVID-19 Source Nasal/nares Cancelled SARS-CoV-2 (PCR) Negative Cancelled 09/12/20 09/12/20 09/12/20 23:24 23:15 23:15 WBC RBC Hgb Hct MCV MCH MCHC RDW Plt Count MPV Immature Gran % Neutrophils % Lymphocytes % Monocytes % Eosinophils % Basophils % Nucleated RBC % Absolute Neutrophils Absolute Lymphocytes Absolute Monocytes Absolute Eosinophils Absolute Basophils VBG Lactate 2.3 H* Sodium Potassium Chloride Carbon Dioxide Anion Gap BUN Creatinine Estimated GFR/1.73 m2 Glucose Calcium Magnesium Total Bilirubin AST ALT Alkaline Phosphatase Ammonia Troponin I Total Protein Albumin TSH Urine Color Yellow Urine Clarity Clear Urine pH 6.0 Ur Specific [place] >= 1.030 H Urine Protein Trace H Urine Ketones Negative Urine Blood Small H Urine Nitrite Negative Urine Bilirubin Negative Urine Urobilinogen 0.2 Ur Leukocyte Esterase Negative Urine RBC 3-5 H Urine WBC Negative Ur Epithelial Cells Rare Urine Crystals Negative Urine Bacteria Rare Urine Casts Negative Urine Mucus Trace Ur Culture Indicated? No Urine Glucose Negative Salicylates Urine Opiates Screen Positive A Urine Methadone Screen Negative Acetaminophen Ur Barbiturates Screen Negative Ur Tricyclics Screen Negative Ur Amphetamines Screen Negative U Benzodiazepines Scrn Negative Urine Cocaine Screen Negative Ur THC Screen Positive A Ethyl Alcohol COVID-19 Source SARS-CoV-2 (PCR) 09/12/20 09/12/20 09/12/20 22:55 22:55 22:55 WBC 4.26 L RBC 4.79 Hgb 13.7 Hct 41.3 MCV 86.2 MCH 28.6 MCHC 33.2 RDW 14.3 H Plt Count 121 L MPV 11.2 H Immature Gran % 0.2 Neutrophils % 57.8 Lymphocytes % 27.0 Monocytes % 11.5 Eosinophils % 2.8 Basophils % 0.7 Nucleated RBC % 0 Absolute Neutrophils 2.46 Absolute Lymphocytes 1.15 L Absolute Monocytes 0.49 Absolute Eosinophils 0.12 Absolute Basophils 0.03 VBG Lactate Sodium Potassium Chloride Carbon Dioxide Anion Gap BUN Creatinine Estimated GFR/1.73 m2 Glucose Calcium Magnesium Total Bilirubin AST ALT Alkaline Phosphatase Ammonia 15 Troponin I Total Protein Albumin TSH Urine Color Urine Clarity Urine pH Ur Specific [place] Urine Protein Urine Ketones Urine Blood Urine Nitrite Urine Bilirubin Urine Urobilinogen Ur Leukocyte Esterase Urine RBC Urine WBC Ur Epithelial Cells Urine Crystals Urine Bacteria Urine Casts Urine Mucus Ur Culture Indicated? Urine Glucose Salicylates < 2.8 Urine Opiates Screen Urine Methadone Screen Acetaminophen < 2 Ur Barbiturates Screen Ur Tricyclics Screen Ur Amphetamines Screen U Benzodiazepines Scrn Urine Cocaine Screen Ur THC Screen Ethyl Alcohol COVID-19 Source SARS-CoV-2 (PCR) 09/12/20 22:55 WBC RBC Hgb Hct MCV MCH MCHC RDW Plt Count MPV Immature Gran % Neutrophils % Lymphocytes % Monocytes % Eosinophils % Basophils % Nucleated RBC % Absolute Neutrophils Absolute Lymphocytes Absolute Monocytes Absolute Eosinophils Absolute Basophils VBG Lactate Sodium 140 Potassium 3.4 L Chloride 101 Carbon Dioxide 29.6 Anion Gap 9.4 BUN 20 H Creatinine 1.3 Estimated GFR/1.73 m2 55.58 Glucose 177 H Calcium 9.1 Magnesium 1.7 L Total Bilirubin 0.6 AST 25 ALT 24 Alkaline Phosphatase 57 Ammonia Troponin I < 0.05 Total Protein 7.9 Albumin 3.7 TSH 1.92 Urine Color Urine Clarity Urine pH Ur Specific [place] Urine Protein Urine Ketones Urine Blood Urine Nitrite Urine Bilirubin Urine Urobilinogen Ur Leukocyte Esterase Urine RBC Urine WBC Ur Epithelial Cells Urine Crystals Urine Bacteria Urine Casts Urine Mucus Ur Culture Indicated? Urine Glucose Salicylates Urine Opiates Screen Urine Methadone Screen Acetaminophen Ur Barbiturates Screen Ur Tricyclics Screen Ur Amphetamines Screen U Benzodiazepines Scrn Urine Cocaine Screen Ur THC Screen Ethyl Alcohol < 3.0 COVID-19 Source SARS-CoV-2 (PCR) [facility] Medical History Alcohol dependence Anxiety Benzodiazepine dependence Bipolar disorder BPH (benign prostatic hyperplasia) Hepatitis B Hepatitis C virus HTN (hypertension) Hypercholesterolemia Opioid abuse Pulmonary embolism Surgical History History of surgical procedure s/p thrombectomy for PE Social History Smoking/Tobacco Use Status: Never Smoking risk assessment performed?: Yes Substance use type: does not use
--- NOTE | 2020-09-14 11:07 | NT_ITS ---
Date of service: 09/14/20 Time of Service: 11:07 PT Notes Visit Reasons: ALCOHOL WITHDRAWAL Patient left against medical advice yesterday, 09/13/2020. No skilled services were provided for this admission. Thank you for the opportunity to participate in the care of this patient. Chio De Jesus PT, DPT, CLT [facility] [place], [place]
== END 2020-09-13 16:10 | disposition left against medical advice (07) | DRG 894 ==
LOC: ER 09-13 02:28 → MS 09-13 02:37
PROVIDERS: Emergency Medicine; Admitting Provider Family Medicine; Emergency Provider Emergency Medicine; PCP Internal Medicine; Visit Provider Family Medicine
DX: F13.239 Sedative, hypnotic or anxiolytic dependence with withdrawal, unspecified (principal); F10.239 Alcohol dependence with withdrawal, unspecified; I10 Essential (primary) hypertension; F11.10 Opioid abuse, uncomplicated; F31.9 Bipolar disorder, unspecified; B19.20 Unspecified viral hepatitis C without hepatic coma; N40.0 Benign prostatic hyperplasia without lower urinary tract symptoms; E87.6 Hypokalemia; F41.9 Anxiety disorder, unspecified; E78.00 Pure hypercholesterolemia, unspecified; Z20.822 Contact with and (suspected) exposure to COVID-19; Z79.01 Long term (current) use of anticoagulants; Z86.711 Personal history of pulmonary embolism
CPT/HCPCS: 36415; 36416; 71275; 74177; 80048; 80053; 80307; 82962; 87635; 93005; 96361; 96365; 96375; 99285; 70450; 80320; 80329; 81003; 81015; 82140; 83605; 83735; 84443; 84484; 85025; 93010; 99236; J2060; J3490

== ENCOUNTER 2020-09-19 09:59 | Emergency (ER) | payer MEDICAID, SELFPAY ==
[2020-09-19] VITALS (39 sets, daily range): BP systolic 101–159; BP diastolic 67–106; PULSE 89–118; RESP 0–38; TEMP 36.5; O2SAT 92–98
--- NOTE | 2020-09-19 10:00 | RT.EKG_ITS ---
APPROVED REPORT Exam: Resting ECG Reason for Exam: chest pain Patient Location: E HR:116 bpm ECG Measurements Heart Rate 116 AXIS OH 148 P 50 QRSd 85 QRS 25 QT 310 T 36 QTc 432 Conclusion Sinus tachycardia...rate> 99 no STEMI, no major change from prior. non-diagnostic EKG I have reviewed and interpreted ECG and agree with software generated interpretation.
--- NOTE | 2020-09-19 10:36 | DI.CT_ITS ---
Exam(s) CT CHEST PE CTA EXAM: CT CHEST PE CTA CLINICAL HISTORY: tx for PE, new SOB, tachy. TECHNIQUE: Imaging Protocol: Axial CT angiography was performed with multi-slice acquisition and mu lti-planar and/or 3D reconstructions. CONTRAST MATERIAL: Intravenous: Omnipaque 350 Contrast volume:100 mL COMPARISON: CT CT CHEST PE ABD PELVIS W from 09/12/2020 FINDINGS: Tracheobronchial tree: Patent where visualized. Pulmonary parenchyma: There are stable pleural based opacities in the left upper lobe in the right lo wer lobe. Ground-glass opacities are seen in the lung bases. This is unchanged. No architectural d istortion. Pulmonary Arteries: No evidence of filling defect to suggest pulmonary emboli. Mediastinum and Reyna: No dominant adenopathy or fluid collection. Visualized thyroid gland: Unremarkable. Pleura: No effusion or pneumothorax. Heart: The heart is not dilated. Mild coronary artery calcification. No pericardial effusion. Aorta: Thoracic aorta non-dilated. Mild atherosclerosis. No evidence of dissection. Upper abdomen: Unremarkable. Soft tissues: Gynecomastia. Bones: Within normal limits for the patient's age. IMPRESSION: No evidence of pulmonary embolism, thoracic aortic dissection or aneurysm. Results of this exam have been verbally communicated with provider. RADIATION DOSE DELIVERED: 487.71mGy.cm Total DLP DATA REPOSITORY: All CT scans at this facility are submitted to the National Radiology Data Registry (NRDR) Dose Index Registry (DIR) with the [employer] (A[employer]). RADIATION OPTIMIZATION: All CT scans at this facility use at least one of these dose optimization te chniques: automated exposure control; mA and/or kV adjustment per patient size (includes targeted exa ms where dose is matched to clinical indication); or iterative reconstruction.
[2020-09-19 10:55] LABS: Source Nasal/Nares
[2020-09-19 10:56] LABS: Abs Immature Grans 0.01 10^3/uL (0.0-0.06); Absolute Basophil Count 0.05 10^3/uL (0.0-0.2); Absolute Eosinophil Count 0.18 10^3/uL (0.0-0.7); Absolute Lymphocyte Count 2.64 10^3/uL (1.2-3.4); Absolute Monocyte Count 0.55 10^3/uL (0.1-0.8); Absolute Neutrophil Count 2.47 10^3/uL (1.2-6.7); Basophils % 0.8; Eosinophils % 3.1; HCT 46.2 % (40.0-50.0); HGB 15.6 g/dL (13.5-17.5); Immature Grans % 0.2; Lymphocytes % 44.7; MCH 28.9 pg (27.0-33.0); MCHC 33.8 % (32.0-36.0); MCV 85.6 fL (80-95); MPV 10.4 fL (8.0-11.0); Monocytes % 9.3; Neutrophils % 41.9; Nucleated RBC 0 %; Platelet Count 205 10^3/uL (130-400); RDW 14.4 % (11.8-14.1)
--- NOTE | 2020-09-19 11:06 | ED.GENADUL_ITS ---
Discharge Plan Disposition Patient Disposition: HOME Condition: Stable Discharge Details Clinical Impression: Opacity of lung on imaging study, Dyspnea Primary Care Provider: Hammad Victoria ED Provider: Farhan López Home Meds and New Rx's Prescriptions: Continued Eliquis 5 mg Tablet 5 mg PO BID RF: 0 clonazepam 0.5 mg Tablet 0.5 mg PO PRN PRNRF: 0 clonazepam 1 mg Tablet 1 mg PO BID RF: 0 mirtazapine 30 mg Tablet 30 mg PO DAILY RF: 0 quetiapine [Seroquel] 300 mg Tablet 150 mg PO QHS RF: 0 zolpidem 10 mg Tablet 10 mg PO QHS PRNRF: 0 Discharge Instructions Instructions: Dyspnea (ED) Additional Instructions: At this time your oxygen level is normal in the mid to high 90s, you are not requiring any supplemental oxygen. As we discussed your CT imaging of your chest reveals bilateral lung opacities which must be followed through your primary care provider. Please take all of your medications as directed. Do not abuse alcohol or benzodiazepines. Watch for new or worsening symptoms and return to the ER for any concerns. I cannot stress the importance of contacting your primary care provider later today or tomorrow to discuss your ongoing symptoms and abnormal CT findings, this needs to be worked up further. Medical Decision Making 64-year-old gentleman, recent admission to our facility for benzodiazepine withdrawal, reports that he has not had any additional benzodiazepine since his AMA from the ER earlier in the week. He presents today reporting 2-week history of shortness of breath worse with exertion however during his hospitalization there is no documentation of any shortness of breath. CT imaging revealed bilateral lung opacities for which she was going to follow-up with his primary care provider. Today his only complaint is that of shortness of breath. He states that he felt a little confused earlier but that has resolved completely. Denies striking his head, headache, visual changes. He is neurologically intact. He did recently have altered mental status associated with his recent hospitalization and acute benzodiazepine withdrawal. He denies any illness, chest pain, cough, recent trauma. He is taking all of his medications as directed. Given his recent diagnosis of PE at [facility], currently on Eliquis, I do believe obtaining CT imaging of his chest is reasonable as well as initiating gentle IV hydration, and initiating a cardiac work-up. Initial laboratory values reveal a white blood cell count of 5.90 hemoglobin 13.6 hematocrit 46.2 platelet count 205. INR 1.0 electrolytes unremarkable. Creatinine 1.2 with a GFR present 60. Glucose 131 calcium 9.5 magnesium 2.1, initial troponin less than 0.05, BNP 14, TSH 0.52 urinalysis unremarkable for UTI. THS positive, alcohol 8.7, Covid negative. Upon reevaluation patient was resting comfortably, able to get up on his own to use a bedside commode. He contacted his on the phone, speaking in full sentences. Awaiting CTA. CTA obtained and read by radiology as no acute pulmonary findings. Continuation of bilateral opacities, no significant changes from most recent CTA. Clinically no signs of pneumonia, will not initiate antibiotic therapy. Awaiting repeat troponin and EKG. Repeat troponin remains less than 0.05. Repeat EKG performed at 1400 reveals sinus tachycardia, ventricular rate of 100, no STEMI, no dynamic changes when compared to initial EKG. Heart rate is trending down nicely. Patient reports that he feels well currently. He has not required any supplemental oxygen. His tox screen is negative for benzodiazepines. Clinically he does not appear to be any acute withdrawal whether it be from benzodiazepines or from alcohol. We discussed his repeat troponin, EKG, initial laboratory values and his CTA. We discussed the importance of outpatient follow-up through his primary care provider regarding his ongoing shortness of breath and CT findings of his chest. Patient is agreeable to this plan, has no additional questions or concerns and is comfortable discharge. He does not require any additional supplemental oxygen. Medical Records Medical records reviewed: Yes I reviewed the patient's medical records. Imaging Data Radiologic Study: Radiologist's impression: Exam(s) CT CHEST PE CTA EXAM: CT CHEST PE CTA CLINICAL HISTORY: tx for PE, new SOB, tachy. TECHNIQUE: Imaging Protocol: Axial CT angiography was performed with multi- slice acquisition and multi-planar and/or 3D reconstructions. CONTRAST MATERIAL: Intravenous: Omnipaque 350 Contrast volume:100 mL COMPARISON: CT CT CHEST PE ABD PELVIS W from 09/12/2020 FINDINGS: Tracheobronchial tree: Patent where visualized. Pulmonary parenchyma: There are stable pleural based opacities in the left upper lobe in the right lower lobe. Ground-glass opacities are seen in the lung bases. This is unchanged. No architectural distortion. Pulmonary Arteries: No evidence of filling defect to suggest pulmonary emboli. Mediastinum and Reyna: No dominant adenopathy or fluid collection. Visualized thyroid gland: Unremarkable. Pleura: No effusion or pneumothorax. Heart: The heart is not dilated. Mild coronary artery calcification. No pericardial effusion. Aorta: Thoracic aorta non-dilated. Mild atherosclerosis. No evidence of dissection. Upper abdomen: Unremarkable. Soft tissues: Gynecomastia. Bones: Within normal limits for the patient's age. IMPRESSION: No evidence of pulmonary embolism, thoracic aortic dissection or aneurysm. Results of this exam have been verbally communicated with provider. RADIATION DOSE DELIVERED: 487.71mGy.cm Total DLP DATA REPOSITORY: All CT scans at this facility are submitted to the National Radiology Data Registry (NRDR) Dose Index Registry (DIR) with the [employer] (ACR). RADIATION OPTIMIZATION: All CT scans at this facility use at least one of these dose optimization techniques: automated exposure control; mA and/or kV adjustme nt per patient size (includes targeted exams where dose is matched to clinical indication); or iterative reconstruction. Lab Data Lab results reviewed: Yes I reviewed the patient's lab results. Labs: Laboratory Tests Range/Units 09/19/20 09/19/20 09/19/20 10:15 10:15 10:15 WBC (4.4-10.8) 10^3/uL 5.90 RBC (4.36-5.78) 10^6/uL 5.40 Hgb (13.5-17.5) g/dL 15.6 Hct (40.0-50.0) % 46.2 MCV (80-95) fL 85.6 MCH (27.0-33.0) pg 28.9 MCHC (32.0-36.0) % 33.8 RDW (11.8-14.1) % 14.4 H Plt Count (130-400) 10^3/uL 205 MPV (8.0-11.0) fL 10.4 Immature Gran % 0.2 Neutrophils % 41.9 Lymphocytes % 44.7 Monocytes % 9.3 Eosinophils % 3.1 Basophils % 0.8 Nucleated RBC % % 0 Absolute Neutrophils (1.2-6.7) 10^3/uL 2.47 Absolute Lymphocytes (1.2-3.4) 10^3/uL 2.64 Absolute Monocytes (0.1-0.8) 10^3/uL 0.55 Absolute Eosinophils (0.0-0.7) 10^3/uL 0.18 Absolute Basophils (0.0-0.2) 10^3/uL 0.05 PT (9.3-11.0) sec 10.2 INR (0.9-1.1) 1.0 APTT (21.0-27.5) sec 22.3 Sodium (136-145) mmol/L 141 Potassium (3.5-5.1) mmol/L 4.1 Chloride (98-107) mmol/L 105 Carbon Dioxide (21.0-32.0) mmol/L 26.6 Anion Gap (3-11) mmol/L 9.4 BUN (7-18) mg/dL 14 Creatinine (0.70-1.30) mg/dL 1.2 Estimated GFR/1.73 m2 (mL/min/1.73m2) >= 60.00 Glucose (74-106) mg/dL 131 H Calcium (8.5-10.1) mg/dL 9.5 Magnesium (1.8-2.4) mg/dL 2.1 Total Bilirubin (0.2-1.0) mg/dL 0.4 AST (15-37) U/L 24 ALT (16-63) U/L 26 Alkaline Phosphatase (46-116) U/L 56 Troponin I (<0.06) ng/mL < 0.05 NT-Pro-B Natriuret Pep (<300) pg/mL 14 Total Protein (6.4-8.2) g/dL 8.3 H Albumin (3.4-5.0) g/dL 3.7 TSH (0.36-3.74) uIU/mL 0.52 Urine Color (Yellow) Urine Clarity (Clear) Urine pH (5-8) Ur Specific [place] (1.005-1.025) Urine Protein (Negative) mg/dL Urine Ketones (Negative) mg/dL Urine Blood (Negative) Urine Nitrite (Negative) Urine Bilirubin (Negative) Urine Urobilinogen (Up TO 0.2) EU/dL Ur Leukocyte Esterase (Negative) Urine Glucose (Negative) mg/dL Urine Opiates Screen (Negative) Urine Methadone Screen (Negative) Ur Barbiturates Screen (Negative) Ur Tricyclics Screen (Negative) Ur Amphetamines Screen (Negative) U Benzodiazepines Scrn (Negative) Urine Cocaine Screen (Negative) Ur THC Screen (Negative) Ethyl Alcohol (<3) mg/dL COVID-19 Source SARS-CoV-2 (PCR) (Negative) Range/Units 09/19/20 09/19/20 09/19/20 10:15 10:43 12:30 WBC (4.4-10.8) 10^3/uL RBC (4.36-5.78) 10^6/uL Hgb (13.5-17.5) g/dL Hct (40.0-50.0) % MCV (80-95) fL MCH (27.0-33.0) pg MCHC (32.0-36.0) % RDW (11.8-14.1) % Plt Count (130-400) 10^3/uL MPV (8.0-11.0) fL Immature Gran % Neutrophils % Lymphocytes % Monocytes % Eosinophils % Basophils % Nucleated RBC % % Absolute Neutrophils (1.2-6.7) 10^3/uL Absolute Lymphocytes (1.2-3.4) 10^3/uL Absolute Monocytes (0.1-0.8) 10^3/uL Absolute Eosinophils (0.0-0.7) 10^3/uL Absolute Basophils (0.0-0.2) 10^3/uL PT (9.3-11.0) sec INR (0.9-1.1) APTT (21.0-27.5) sec Sodium (136-145) mmol/L Potassium (3.5-5.1) mmol/L Chloride (98-107) mmol/L Carbon Dioxide (21.0-32.0) mmol/L Anion Gap (3-11) mmol/L BUN (7-18) mg/dL Creatinine (0.70-1.30) mg/dL Estimated GFR/1.73 m2 (mL/min/1.73m2) Glucose (74-106) mg/dL Calcium (8.5-10.1) mg/dL Magnesium (1.8-2.4) mg/dL Total Bilirubin (0.2-1.0) mg/dL AST (15-37) U/L ALT (16-63) U/L Alkaline Phosphatase (46-116) U/L Troponin I (<0.06) ng/mL NT-Pro-B Natriuret Pep (<300) pg/mL Total Protein (6.4-8.2) g/dL Albumin (3.4-5.0) g/dL TSH (0.36-3.74) uIU/mL Urine Color (Yellow) Urine Clarity (Clear) Urine pH (5-8) Ur Specific [place] (1.005-1.025) Urine Protein (Negative) mg/dL Urine Ketones (Negative) mg/dL Urine Blood (Negative) Urine Nitrite (Negative) Urine Bilirubin (Negative) Urine Urobilinogen (Up TO 0.2) EU/dL Ur Leukocyte Esterase (Negative) Urine Glucose (Negative) mg/dL Urine Opiates Screen (Negative) Negative Urine Methadone Screen (Negative) Negative Ur Barbiturates Screen (Negative) Negative Ur Tricyclics Screen (Negative) Negative Ur Amphetamines Screen (Negative) Negative U Benzodiazepines Scrn (Negative) Negative Urine Cocaine Screen (Negative) Negative Ur THC Screen (Negative) Positive A Ethyl Alcohol (<3) mg/dL 8.7 COVID-19 Source Nasal/nares SARS-CoV-2 (PCR) (Negative) Negative Range/Units 09/19/20 09/19/20 12:30 13:25 WBC (4.4-10.8) 10^3/uL RBC (4.36-5.78) 10^6/uL Hgb (13.5-17.5) g/dL Hct (40.0-50.0) % MCV (80-95) fL MCH (27.0-33.0) pg MCHC (32.0-36.0) % RDW (11.8-14.1) % Plt Count (130-400) 10^3/uL MPV (8.0-11.0) fL Immature Gran % Neutrophils % Lymphocytes % Monocytes % Eosinophils % Basophils % Nucleated RBC % % Absolute Neutrophils (1.2-6.7) 10^3/uL Absolute Lymphocytes (1.2-3.4) 10^3/uL Absolute Monocytes (0.1-0.8) 10^3/uL Absolute Eosinophils (0.0-0.7) 10^3/uL Absolute Basophils (0.0-0.2) 10^3/uL PT (9.3-11.0) sec INR (0.9-1.1) APTT (21.0-27.5) sec Sodium (136-145) mmol/L Potassium (3.5-5.1) mmol/L Chloride (98-107) mmol/L Carbon Dioxide (21.0-32.0) mmol/L Anion Gap (3-11) mmol/L BUN (7-18) mg/dL Creatinine (0.70-1.30) mg/dL Estimated GFR/1.73 m2 (mL/min/1.73m2) Glucose (74-106) mg/dL Calcium (8.5-10.1) mg/dL Magnesium (1.8-2.4) mg/dL Total Bilirubin (0.2-1.0) mg/dL AST (15-37) U/L ALT (16-63) U/L Alkaline Phosphatase (46-116) U/L Troponin I (<0.06) ng/mL < 0.05 NT-Pro-B Natriuret Pep (<300) pg/mL Total Protein (6.4-8.2) g/dL Albumin (3.4-5.0) g/dL TSH (0.36-3.74) uIU/mL Urine Color (Yellow) Yellow Urine Clarity (Clear) Clear Urine pH (5-8) 8.5 H Ur Specific [place] (1.005-1.025) 1.020 Urine Protein (Negative) mg/dL Negative Urine Ketones (Negative) mg/dL Negative Urine Blood (Negative) Negative Urine Nitrite (Negative) Negative Urine Bilirubin (Negative) Negative Urine Urobilinogen (Up TO 0.2) EU/dL 1.0 H Ur Leukocyte Esterase (Negative) Negative Urine Glucose (Negative) mg/dL Negative Urine Opiates Screen (Negative) Urine Methadone Screen (Negative) Ur Barbiturates Screen (Negative) Ur Tricyclics Screen (Negative) Ur Amphetamines Screen (Negative) U Benzodiazepines Scrn (Negative) Urine Cocaine Screen (Negative) Ur THC Screen (Negative) Ethyl Alcohol (<3) mg/dL COVID-19 Source SARS-CoV-2 (PCR) (Negative) ECG Data Attestation: I personally reviewed and interpreted this ECG (s) as follows: Interpretation: Please see official report by Dr. Morales. Sinus tachycardia, ventricular rate 116. No STEMI. HPI General Mode of arrival: ambulatory . Date/Time Provider Initiated Documentation: 09/19/20 10:12 . Limitations to Documentation: no limitations . Information obtained by: patient . HPI Narrative: This is a 64-year-old gentleman with Alli history of opioid dependence and abuse, benzodiazepine dependence, alcohol dependence as well as history of PE and is on Eliquis. He was admitted to our facility on 09-13-20 for altered mental status likely due to acute benzodiazepine withdrawal. Patient began drinking alcohol approximately 2 months ago. Patient left AMA prior to his withdrawal completely resolving. Of no on a CT he did have a bilateral pleural base opacities which the plan was for outpatient primary care follow-up. He presents to the ER today reporting he felt slightly confused this morning upon awaking, was unsure of where his daughter lived and forgot that his son has . He reports that his corrected him and he now feels as though he is at his baseline mental status. He tells me now that he presents to the ER today for what he describes as 2 or 3-week history of shortness of breath, worse with exertion. Interestingly there is no mention of shortness of breath during his recent hospitalization, specifically note states that he did not have any pulmonary symptoms on his admission. Patient denies headache, fever, chest pain, cough, abdominal pain, nausea vomiting, change in bowel or bladder function, pain or swelling in his legs. He assures me that he is taking all of his medications as directed. Related Data Home Medications Medication Instructions Recorded Confirmed Eliquis 5 mg PO BID 09/13/20 09/19/20 clonazepam 0.5 mg PO PRN PRN 09/13/20 09/19/20 clonazepam 1 mg PO BID 09/13/20 09/19/20 mirtazapine 30 mg PO DAILY 09/13/20 09/19/20 quetiapine [Seroquel] 150 mg PO QHS 09/13/20 09/19/20 zolpidem 10 mg PO QHS PRN 09/13/20 09/19/20 Allergies Allergy/AdvReac Type Severity Reaction Status Date / Time acetaminophen [From Percocet] Allergy Intermediate Verified 09/19/20 10:13 oxycodone [From Percocet] Allergy Intermediate Verified 09/19/20 10:13 bupropion AdvReac Intermediate Verified 09/19/20 10:13 hydrochlorothiazide AdvReac Intermediate Verified 09/19/20 10:13 General Stated Complaint: RespSymp KARISSA: 2 Review of Systems Constitutional Constitutional: Denies fatigue, Denies fever(s) and Denies headache(s) ENT Ears, Nose, Mouth, and Throat: Denies headache(s) and Denies neck pain Cardiovascular Cardiovascular: Denies chest pain, Reports dyspnea and Reports dyspnea on exertion Respiratory Respiratory: Denies cough, Reports dyspnea and Reports dyspnea on exertion Gastrointestinal Gastrointestinal: Denies abdominal pain, Denies nausea and Denies vomiting Genitourinary Genitourinary: Denies dysuria Musculoskeletal Musculoskeletal: Reports back pain (chronic) and Denies neck pain Integumentary/Breasts Skin/Breast: Denies rash Neurologic Neurologic: Denies headache(s) Endocrine Endocrine: Denies fatigue Hematologic/Lymphatic Hematologic/Lymphatic: Reports easy bleeding and Reports easy bruising PFSH Medical History Alcohol dependence Anxiety Benzodiazepine dependence Bipolar disorder BPH (benign prostatic hyperplasia) Hepatitis B Hepatitis C virus HTN (hypertension) Hypercholesterolemia Opioid abuse Pulmonary embolism Surgical History History of surgical procedure s/p thrombectomy for PE Social History Smoking/Tobacco Use Status: Never Smoking risk assessment performed?: Yes Drug use: Never Substance use type: does not use Do you feel safe at home: Yes Do you feel safe in your relationship?: Yes Exam Const General: cooperative, healthy appearing, comfortable and no acute distress Orientation: alert, awake, oriented to person, oriented to place and oriented to time (September 2020, unsure of exact date) [facility] Head: normal to inspection, normocephalic and atraumatic Face and sinus: normal facial exam Mouth: moist mucous membranes Eyes General: appearance normal, both eyes and all related structures Conjunctivae: conjunctivae normal Neck Neck: normal visual inspection, full ROM, trachea midline, supple and nontender Resp Effort & Inspection: normal respiratory effort and able to speak in complete sentences Auscultation: diminished lung sounds bilaterally in the lower lung hammer Cardio Rate: tachycardic (104) Rhythm: regular rhythm GI Inspection: obesity Palpation: soft, not firm, no guarding, no pulsatile masses and nontender Auscultation: normal bowel sounds Back/Spine/Pelvis Back: No back tenderness Skin General skin exam: no rashes or lesions noted Neuro General: patient alert, patient awake, moves all extremities and no focal motor deficits Cognition: normal cognition Speech: speech normal Gait: normal gait Motor: muscle tone normal throughout Sensory Exam: no sensory deficits noted Extrem General: normal to inspection, full ROM, capillary refill normal, no pedal edema and no calf tenderness Psych Appearance: grossly normal Mental Status: mental status grossly normal Course Vital Signs Vital signs: Vital Signs Temperature 36.5 C 09/19/20 10:08 Pulse 118 H 09/19/20 10:08 Respiratory Rate 18 09/19/20 10:08 Pulse Oximetry 98 09/19/20 10:08 Temperature 36.5 C 09/19/20 10:08 Temperature Source Skin 09/19/20 10:08 Pulse 98 H 09/19/20 10:33 Pulse 112 H 09/19/20 10:33 Respiratory Rate 20 09/19/20 10:33 Respiratory Effort 09/19/20 10:17 Respiratory Depth Normal 09/19/20 10:17 Blood Pressure 125/91 H 09/19/20 10:33 Blood Pressure Mean 100 09/19/20 10:33 Blood Pressure Position Supine 09/19/20 10:08 Pulse Oximetry 95 09/19/20 10:33 Oxygen Delivery Method Room Air 09/19/20 10:08 Oxygen Flow Rate 0 09/19/20 10:08 Pain Level 0 09/19/20 10:08 Lab/Test Results Lab/Test Results: Laboratory Tests Range/Units 09/19/20 09/19/20 10:15 10:43 WBC (4.4-10.8) 10^3/uL 5.90 RBC (4.36-5.78) 10^6/uL 5.40 Hgb (13.5-17.5) g/dL 15.6 Hct (40.0-50.0) % 46.2 MCV (80-95) fL 85.6 MCH (27.0-33.0) pg 28.9 MCHC (32.0-36.0) % 33.8 RDW (11.8-14.1) % 14.4 H Plt Count (130-400) 10^3/uL 205 MPV (8.0-11.0) fL 10.4 Immature Gran % 0.2 Neutrophils % 41.9 Lymphocytes % 44.7 Monocytes % 9.3 Eosinophils % 3.1 Basophils % 0.8 Nucleated RBC % % 0 Absolute Neutrophils (1.2-6.7) 10^3/uL 2.47 Absolute Lymphocytes (1.2-3.4) 10^3/uL 2.64 Absolute Monocytes (0.1-0.8) 10^3/uL 0.55 Absolute Eosinophils (0.0-0.7) 10^3/uL 0.18 Absolute Basophils (0.0-0.2) 10^3/uL 0.05 COVID-19 Source Nasal/nares
[2020-09-19 11:12] LABS: ETHANOL BLOOD 8.7 mg/dL (<3)
[2020-09-19 11:15] LABS: PTT Activated 22.3 sec (21.0-27.5); Prothrombin Time 10.2 sec (9.3-11.0)
[2020-09-19 11:22] LABS: ALT 26 U/L (16-63); AST 24 U/L (15-37); Albumin 3.7 g/dL (3.4-5.0); Alkaline Phosphatase 56 U/L (46-116); Anion Gap 9.4 mmol/L (3-11); BUN 14 mg/dL (7-18); Bilirubin, Total 0.4 mg/dL (0.2-1.0); CO2 26.6 mmol/L (21.0-32.0); CREATININE 1.2 mg/dL (0.70-1.30); Calcium 9.5 mg/dL (8.5-10.1); Chloride 105 mmol/L (98-107); Glucose 131 mg/dL (74-106); Magnesium 2.1 mg/dL (1.8-2.4); NT-proBNP 14 pg/mL (<300); Potassium 4.1 mmol/L (3.5-5.1); Sodium 141 mmol/L (136-145); TSH (W/Ref FT4) 0.52 uIU/mL (0.36-3.74); Total Protein 8.3 g/dL (6.4-8.2)
[2020-09-19 11:24] LABS: Troponin I < 0.05 ng/mL (<0.06)
[2020-09-19 11:46] LABS: COVID-19 PCR Negative (Negative)
[2020-09-19] MEDS: Omnipaque 350 MG/ML 100 ML BTL IV (12:19)
[2020-09-19] MEDS: Normal Saline - Diluent 50 ML VIAL IV (12:20)
[2020-09-19 12:42] LABS: Bilirubin Negative (Negative); Blood Negative (Negative); Clarity Clear (Clear); Glucose Negative (Negative); Ketones Negative (Negative); Leukocyte Esterase Negative (Negative); Nitrite Negative (Negative); pH 8.5 (5-8)
[2020-09-19 12:52] LABS: Tricyclic Antidepressants Negative (Negative)
[2020-09-19 12:58] LABS: *AMPHETAMINES SCREEN URINE Negative (Negative); *BARBITURATES SCREEN URINE Negative (Negative); *BENZODIAZEPINES SCREEN URINE Negative (Negative); Cannabinoids THC Positive (Negative); Cocaine Screen,Urine Negative (Negative); METHADONE URINE SCREEN Negative (Negative); OPIATES URINE SCREEN Negative (Negative)
--- NOTE | 2020-09-19 13:45 | RT.EKG_ITS ---
APPROVED REPORT Exam: Resting ECG Reason for Exam: 2nd ekg chest pain Patient Location: E HR:100 bpm ECG Measurements Heart Rate 100 AXIS AK 151 P 20 QRSd 88 QRS 46 QT 335 T 32 QTc 431 Conclusion Sinus tachycardia...rate> 99 no STEMI, non-diagnostic EKG I have reviewed and interpreted ECG and agree with software generated interpretation.
[2020-09-19 13:46] LABS: Troponin I < 0.05 ng/mL (<0.06)
[2020-09-19] MEDS: Normal Saline 250 ML IV (14:10)
== END 2020-09-19 14:35 | disposition home or self-care (01) ==
PROVIDERS: Emergency Provider Physician Assistant; PCP Internal Medicine
DX: R06.00 Dyspnea, unspecified (principal); R91.8 Other nonspecific abnormal finding of lung field
CPT/HCPCS: 36415; 71275; 80053; 80307; 87635; 93005; 99285; 80320; 81003; 83735; 83880; 84443; 84484; 85025; 85610; 85730; 93010; 99283; J3490